=== PATIENT | male | born 1965 | race Caucasian/White ===

== ENCOUNTER 2023-12-28 09:40 | Outpatient (REF) | payer OTHER, SELFPAY ==
--- NOTE | ~2023-12-28 | US_ITS ---
EXAMINATION: US ABDOMEN LIMITED CLINICAL INFORMATION: Ventral hernia. COMPARISON: None available. TECHNIQUE: Real-time imaging of the epigastric midline lung and left upper quadrant lump. FINDINGS: No evidence of hernia. US/US abdomen limited IMPRESSION: No evidence of hernia.
[2023-12-28 10:06] LABS: MANUAL DIFF FLAG NO
[2023-12-28 10:27] LABS: Basophils Percent Auto 0.6 % (0-2); Eosinophils Percent Auto 0.6 % (0-4); Hematocrit 47.7 % (42.0-52.0); Hemoglobin 16.6 g/dl (14.0-18.0); Imm Gran Abs Auto 0.02 X10*3/uL (0.00-0.03); Imm Gran Pct Auto 0.4 % (0.0-0.4); Lymphocytes Absolute Auto 1.5 X10*3/uL (1.2-4.9); Lymphocytes Percent Auto 32.2 % (20-40); Mean Corpuscular HGB Conc 34.8 g/dl (31.0-36.0); Mean Corpuscular Hemoglobin 30.5 pg (27.0-33.0); Mean Corpuscular Volume 87.5 fL (80.0-98.0); Mean Platelet Volume 8.7 fL (9.4-12.4); Monocytes Absolute Auto 0.4 X10*3/uL (0.1-1.2); Monocytes Percent Auto 8.2 % (2-11); Neutrophils Absolute Auto 2.8 x10*3/uL (2.0-8.3); Platelet Count 268 X10*3/uL (160-400); Red Blood Count 5.45 X10*6/uL (4.60-5.80); Red Cell Distribution Width 12.7 % (11.0-16.0); White Blood Count 4.8 X10*3/uL (4.8-10.8)
[2023-12-28 10:35] LABS: Estimated Average Glucose 108 mg/dL; Hemoglobin A1C 150.5946 umol/L; Hemoglobin A1c % 5.4 % (<6.0)
[2023-12-28 11:14] LABS: Alanine Aminotransferase 26 U/L (0-40); Albumin Level 4.6 g/dL (3.5-5.0); Alkaline Phosphatase 64 U/L (39-117); Anion Gap 16 (12-20); Aspartate Amino Transferase 21 U/L (5-37); Bilirubin Total 0.9 mg/dL (0.0-1.0); Blood Urea Nitrogen 22 mg/dL (9-16); Calcium 9.9 mg/dL (8.4-10.2); Carbon Dioxide 26 mmol/L (22-29); Chloride 101 mmol/L (96-108); Cholesterol 238 mg/dL (<200); Estimated Glomerular Filt Rate > 60; Glucose Random 105 mg/dL (60-115); HDL Cholesterol 51 mg/dL (>40); LDL Cholesterol Calculated 155 mg/dL (<100); Potassium 4.5 mmol/L (3.3-5.1); Prostate Specific Antigen 0.38 ng/mL (<0.05-4.0); Sodium 138 mmol/L (135-145); Total Protein 8.2 g/dL (6.5-8.0); Triglycerides 161 mg/dL (<150)
[2023-12-29 11:22] LABS: DHEA Sulfate 184 mcg/dL (32-279); Follicle Stimulating Hormone 3.9 mIU/mL (1.4-12.8); Lutenizing Hormone 1.4 mIU/mL (1.5-9.3)
[2024-01-03 12:28] LABS: Testosterone, Total 263 ng/dL (250-1100)
[2024-01-04 03:03] LABS: Estradiol Ultra Sensitive 17 pg/mL (< OR = 29)
== END 2023-12-28 09:41 | disposition home or self-care (01) ==
LOC: HO.XRAY 09:40
PROVIDERS: Visit Provider Nurse Practitioner Adult Health
DX: K43.9 Ventral hernia without obstruction or gangrene (principal); Z12.5 Encounter for screening for malignant neoplasm of prostate
CPT/HCPCS: 36415; 76705; 80053; 80061; 82627; 82670; 83001; 83002; 83036; 84153; 84403; 84443; 85025

== ENCOUNTER 2024-07-12 08:59 | Outpatient (AMB) | payer OTHER, SELFPAY ==
--- NOTE | 2024-07-12 09:03 | MHC.OFFVIS ---
Vital Signs 07/12/24 09:04 Height 5 ft 2 in Weight 154 lb 5.177 oz BMI 28.2 BP 140/74 H Blood Pressure Location Lt brachial Position Sitting Pulse 86 Intake Visit Reasons: Chronic IBS Intake Note: Vinny presents in the office as a new patient for Chronic IBS. CC: He states that he has LLQ pains and he states that he is questioning an Ulcer. Occasional irregular bowel movements. 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 Reports has had intermittent vague pain x years but for the past 3 weeks pain character and location has shifted. Feels more of a gnawing pin point pain now which gets worse with eating. Sometimes also exacerbated by doing weights bolivar on lat pull downs. Occurs daily. Not assoc with nausea vomiting or change in stool. No unintentional weight loss. Has been taking omeprazole 40 mg x 2 months and more recently Rxed dicyclomine 10 QID but has not started yet. Recent endoscopy: 2021 (Dr Jason) Esophagitis. Gastritis (no HP). Normal duo bx. Sigmoid polyp: hyperplastic. Pt also recently injured his R leg. Advised against use of NSAIDs. [facility] Surgical History (Updated 07/12/24 @ 09:17 by DALLIN Corrales) Hx of colonoscopy History of esophagogastroduodenoscopy (EGD) Review of Systems Const All systems reviewed & are unremarkable except as noted in HPI and below Physical Exam Vital Signs: Last Vital Signs Pulse 86 07/12/24 09:04 BP 140/74 H 07/12/24 09:04 BMI result Body Mass Index 28.2 No apparent distress Nonicteric Abdomen soft, nondistended Alert and oriented x3, R knee in a compression wrap and requiring crutches to help walk Assessment & Plan Assessment & Plan (1) LUQ abdominal pain: Code(s): R10.12 - Left upper quadrant pain Category: Medical (2) History of esophagitis: Code(s): Z87.19 - Personal history of other diseases of the digestive system Category: Medical (3) History of gastritis: Code(s): Z87.19 - Personal history of other diseases of the digestive system Category: Medical Plan Ddx includes PUD, gastritis, pancreatitis, celiac, MSK injury. Plan: - Labs as below - Cont omeprazole 40 once daily in AM - Start sucralfate 10ml up to QID - to be taken 30 mins before meals - EGD to be booked - Avoid NSAIDS, smoking, etOH Follow up after EGD Orders: Orders Immunoglobulin A Today R10.12 - Left upper quadrant pain Transglutaminase IgA Today R10.12 - Left upper quadrant pain Complete Blood Count no Diff Today R10.12 - Left upper quadrant pain Comprehensive Met. Panel Today R10.12 - Left upper quadrant pain Lipase Today R10.12 - Left upper quadrant pain TSH reflex Free T4 Today R10.12 - Left upper quadrant pain Medications: New sucralfate 10 mL PO QIDACHS 14 days 560 mL 1RF Coding Level of Care Code New Pt Level 4 (11985) Diagnoses LUQ abdominal pain R10.12 History of esophagitis Z87.19 History of gastritis Z87.19
[2024-07-12 09:04] VITALS: BP 140/74; PULSE 86; BMI 28.2
== END 2024-07-12 10:01 | disposition home or self-care (01) ==
PROVIDERS: PCP Nurse Practitioner Family; Visit Provider Internal Medicine
DX: R10.12 Left upper quadrant pain (principal); Z87.19 Personal history of other diseases of the digestive system
CPT/HCPCS: 99204

== ENCOUNTER 2024-07-12 08:59 | Outpatient (REF) | payer OTHER, SELFPAY | END 2024-07-12 09:00 | disposition home or self-care (01) | LOC: HO.LAB 08:59 | PROVIDERS: PCP Nurse Practitioner Family; Visit Provider Internal Medicine | DX: Z13.89 Encounter for screening for other disorder (principal) ==

== ENCOUNTER 2024-07-12 10:20 | Outpatient (REF) | payer OTHER, SELFPAY ==
[2024-07-12 11:18] LABS: Hematocrit 54.4 % (42.0-52.0); Hemoglobin 19.2 g/dl (14.0-18.0); Mean Corpuscular HGB Conc 35.3 g/dl (31.0-36.0); Mean Corpuscular Hemoglobin 30.7 pg (27.0-33.0); Mean Platelet Volume 9.1 fL (9.4-12.4); Platelet Count 305 X10*3/uL (160-400); Red Blood Count 6.25 X10*6/uL (4.60-5.80); Red Cell Distribution Width 12.6 % (11.0-16.0); White Blood Count 8.4 X10*3/uL (4.8-10.8)
[2024-07-12 12:00] LABS: Alanine Aminotransferase 32 U/L (0-40); Albumin Level 4.4 g/dL (3.5-5.0); Alkaline Phosphatase 67 U/L (39-117); Anion Gap 10 (12-20); Aspartate Amino Transferase 29 U/L (5-37); Blood Urea Nitrogen 17 mg/dL (9-16); Calcium 9.2 mg/dL (8.4-10.2); Carbon Dioxide 27 mmol/L (22-29); Chloride 103 mmol/L (96-108); Estimated Glomerular Filt Rate > 60; Glucose Random 95 mg/dL (60-115); Lipase 43 U/L (8-78); Potassium 4.2 mmol/L (3.3-5.1); Sodium 136 mmol/L (135-145); Total Protein 7.9 g/dL (6.5-8.0)
[2024-07-12 12:19] LABS: TSH reflex Free T4 0.53 uIU/mL (0.32-4.0)
[2024-07-13 23:39] LABS: Immunoglobulin A 380 mg/dL (47-310)
[2024-07-14 17:18] LABS: Transglutaminase IgA <1.0 U/mL
[2024-07-19 15:16] LABS: H Pylori Breath Test Negative (Negative)
== END 2024-07-12 10:21 | disposition home or self-care (01) ==
LOC: HO.LAB 10:20
PROVIDERS: PCP Nurse Practitioner Family; Visit Provider Internal Medicine
DX: R10.12 Left upper quadrant pain (principal); Z87.19 Personal history of other diseases of the digestive system
CPT/HCPCS: 36415; 80053; 82784; 83013; 83690; 84443; 85027; 86364

== ENCOUNTER 2024-08-01 07:38 | Outpatient (AMB) | payer OTHER, SELFPAY ==
[2024-08-01 07:56] VITALS: BMI 28.2
--- NOTE | 2024-08-01 07:56 | A.OFFVIS_ITS ---
Vital Signs 08/01/24 07:56 Height 5 ft 2 in Weight 154 lb 5 oz BMI 28.2 Intake Visit Reasons: Right knee pain and instability Intake Note: Vinny is a 58 year old male who presents with complaints of progressively worsening right knee pain and giving way. The patient states that he injured his right knee several months ago when he twisted his knee while running on a [employer] He had acute onset of pain along the anterior aspect of his knee. The patient states that initially he was not able to weight bear on his right leg. He has been using crutches because of his pain. He states that his right knee gives out when he is not using the crutches. He has tried Tylenol and anti- inflammatory medicines which gave him minimal relief. He has failed the last 6 weeks of conservative treatment which has included topical creams, physical therapy exercises, crutches, Tylenol and anti-inflammatory medicines. He denies any knee pain or instability prior to this injury. Allergies No Known Allergies Allergy (Verified 08/01/24 08:00) Medication List - Last Reconciled 08/01/24 by Tomas Ribeiro MD lisinopril 20 mg PO DAILY omeprazole 40 mg PO DAILY sucralfate 10 mL PO QIDACHS 14 days [facility] Surgical History (Updated 07/12/24 @ 09:17 by DALLIN Corrales) Hx of colonoscopy History of esophagogastroduodenoscopy (EGD) Physical Exam Vital Signs: BMI result Body Mass Index 28.2 Const Other: Well-nourished well-developed very friendly male awake alert and oriented x3 in no acute distress Extrem Other: Bilateral lower extremity examination shows good capillary refill, no skin lesions noted, normal sensation light touch Right knee examination shows a mild effusion, minimal crepitus with range of motion, tenderness along his medial joint line, positive Russell's test, p ositive Estefanía test Results Reviewed Results Reviewed: Standing full weight-bearing x-rays of the patient's right knee show minimal diffuse joint space narrowing, no acute bony abnormalities Assessment & Plan Assessment & Plan (1) 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 Cardenas presents with progressively worsening right knee pain and mechanical symptoms most likely due to an anterior cruciate ligament tear as well as possible tearing of his medial meniscus. Thus, I will send the patient for an MRI of his right knee for further evaluation. I will see him back once the MRI is completed to discuss the findings and treatment options. Feel free to call me at any time should questions regarding his orthopedic management arise. Thank you very much for asking me to see this very friendly gentleman. I spent 22 minutes in reviewing the patient's records and imaging studies, seeing the patient and documenting in the medical record. 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
== END 2024-08-01 08:22 | disposition home or self-care (01) ==
PROVIDERS: PCP Nurse Practitioner Family; Visit Provider Orthopaedic Surgery
DX: M23.8X1 Other internal derangements of right knee (principal)
CPT/HCPCS: 99203

== ENCOUNTER 2024-08-01 14:51 | Outpatient (REF) | payer OTHER, SELFPAY ==
--- NOTE | ~2024-08-01 | XR_ITS ---
EXAMINATION: XR KNEE RIGHT CLINICAL INFORMATION: Pain in right knee M25.561. COMPARISON: None available TECHNIQUE: 3 views of the right knee. FINDINGS: No fracture or joint effusion. Alignment is anatomic. Joint spaces are maintained. No abnormal soft tissue calcification. XR/XR knee RT 3V IMPRESSION: Normal right knee. Electronically signed by: Jacob Kendall MD 09/07/2024 02:55 PM [facility] [place]
== END 2024-08-01 14:52 | disposition home or self-care (01) ==
LOC: HO.HOSX 14:51
PROVIDERS: Visit Provider Orthopaedic Surgery
DX: M23.8X1 Other internal derangements of right knee (principal)
CPT/HCPCS: 73562

== ENCOUNTER 2024-08-04 11:50 | Day surgery (SDC) | payer OTHER, SELFPAY ==
[2024-08-04 12:04] VITALS: BMI 27.1
[2024-08-04 12:16] VITALS: BP 157/78; PULSE 93; RESP 15; TEMP 37; O2SAT 96
[2024-08-04] MEDS: Lactated Ringers 1,000 ML 50 ML IVCONT (12:27)
--- NOTE | 2024-08-04 13:00 | MHC.SHP ---
Pre-Procedural Eval Section A - 24 Hr Update-Section A only Date of Service: 08/04/24 The patient is an INPATIENT: No Changes since office visit: Yes Patient answered all questions; No Cold of Flu in the past 2 weeks, No New Medical Problems and No Changes in Medication The patient has been examined within 24 hours of the surgical procedure. The History & Physical has been completed within 30 days and I have reviewed it.: Yes Section B - Complete if H&P > 30 days Chief Complaint: Left upper quadrant pain,hx of disease digestive Allergies: Allergies Allergy/AdvReac Type Severity Reaction Status Date / Time No Known Allergies Allergy Verified 08/04/24 12:04 Plan Diagnosis/Plan: Unchanged I have reviewed the history and physical and performed a pertinent physical examination on my patient. No changes have occurred unless specified. Time Spent With Patient Time: Total time managing care of this patient today ____ minutes.
--- NOTE | 2024-08-04 13:41 | HO.ANESPROP2 ---
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 Hct will be checked after off TRT before further w/u History of gastritis (Acute) History of esophagitis (Acute) LUQ abdominal pain (Acute) On TRT Past Medical History Medical History Hx of right bundle branch block Borderline high cholesterol HTN (hypertension) Family History Family history of problems with anesthesia: No Surgical History Surgical History Hx of cerebral aneurysm repair Hx of colonoscopy History of esophagogastroduodenoscopy (EGD) History of Problems with Anesthesia: No Social History Social History Patient Tobacco Use Status: Former Tobacco user Use of substances other than those prescribed or required for medical reasons: No Are you DNR?: No Advance Directives: No Advance Directives Information Provided: Yes Recently lost weight without trying: No Meds Allergies Allergy/AdvReac Type Severity Reaction Status Date / Time No Known Allergies Allergy Verified 08/04/24 12:04 Active Medications: Current Medications Lactated Ringer's (Lr) 1,000 mls @ 50 mls/hr IVCONT .Q20H ALONZO Last Admin: 08/04/24 12:27 Dose: 50 mls/hr Home Medications ?Medication ?Instructions ?Recorded ?Confirmed ?Last Taken ?Type lisinopril 20 mg tablet 20 mg PO DAILY 07/12/24 08/04/24 Unknown History omeprazole 40 mg capsule,delayed 40 mg PO DAILY 07/12/24 08/04/24 Unknown History release Exam Height,Weight and Vital Signs: Height 5 ft 2 in Weight 67.132 kg Last Vital Signs Temp 98.6 F 08/04/24 12:16 Pulse 93 08/04/24 12:16 Resp 15 08/04/24 12:16 BP 157/78 H 08/04/24 12:16 Pulse Ox 96 12/13/24 12:16 O2 Del Method Room Air 12/13/24 12:16 Airway Mallampati Class: III TM Dist: >3cm Neck ROM: Full Loose/Missing/Broken Teeth: Yes (Missing molars. Permanent bridge bottom. Denies broken or loose teeth) Heart: RRR Lungs: CTAB Assessment and Plan Assessment Anesthesia Assessment: Anesthesia Plan Discussed and Chart Reviewed Final Anesthetic Review Family History of Problems with Anesthesia: No History of Problems with Anesthesia: No NPO: Yes ASA Class: II Final Preanesthetic Review: No Changes in Pt Med Stat, Meds/Allgs Chart Reviewed, Consent Obtained/Reviewed and Anes Risks/Benef Reviewed Patient Risk: Intermediate Procedure Risk: Low Assessment/Block/Sedation in SS: Assess/Block/Sedation-SS Anesthetic Plan Anesthetic Plan: TIVA Disposition: Standard PACU
[2024-08-04 14:16] VITALS: BP 116/79; PULSE 94; RESP 16; TEMP 36.8; O2SAT 96
--- NOTE | 2024-08-04 14:17 | P.OP_ITS ---
Operative Note Operative Note Date of Service: 08/04/24 Narrative: FLEXIBLE TRANSORAL UPPER GASTROINTESTINAL ENDOSCOPY WITH BIOPSIES Pre-op diagnosis: Upper abdominal pain, Post-op diagnosis: GERD, hiatal hernia, Gastritis, Specimens and Sources: : A: SMALL BOWEL BX R/O CELIAC ?B: ANTRUM BX R/O H PYLORI ?C: GASTRIC BODY BX ?D: GE JUNCTION BX R/O BARRETTS Endoscopist:? Rodrigo Woodruff MD Anesthesia:?[facility] [place] UPPER ENDOSCOPY Consent: Indications for the procedure and potential complications of bleeding, perforation, reaction to medications and missed diagnosis were discussed with the patient and informed consent was obtained. Instrument: Olympus GIF H 190 mid size upper endoscope Monitoring: Vital signs and clinical assessment, continuous EKG monitoring, Pulse oximetry, Carbon Dioxide monitoring and blood pressure monitoring were done throughout the procedure. Procedure: The patient was placed in the left lateral decubitis position and pre-procedure medications were administered and a bite block was placed. The endoscope was inserted into the mouth and advanced under direct vision to the third part of duodenum. A careful inspection was made as the upper endoscope was withdrawn including a retroflexed examination of the proximal stomach; Findings and interventions are described below. Findings: Larynx: Normal Esophagus: GE junction at 38 cms, small hiatal hernia 38 to 40 cms. ! cms tongue of suspected Rodriguez's - biopsied Stomach: 2 cms focal area of nodular appearing mucosa in the gastric body along the lesser curve at 45 cms - biopsied. Scattered chronic appearing erosions in the pre-pyloric area in the antrum - biopsies were obtained. Grade 2 flap valve on retroflexed examination of the cardia. Duodenum: Normal bulb and descending duodenum. Biopsies were obtained from 3rd part of the duodenum to check for celiac sprue Intervention: Biopsies as noted above Impression and Post Procedure Diagnosis: Endoscopy Findings: ESOPHAGUS: small hiatal hernia 38 to 40 cms. ! cms tongue of suspected Rodriguez's - biopsied STOMACH: 2 cms focal area of nodular appearing mucosa in the gastric body along the lesser curve at 45 cms - biopsied. Scattered chronic appearing erosions in the pre-pyloric area in the antrum - biopsies were obtained. DUODENUM: Normal - biopsied to check for celiac sprue Plan: Pt to schedule a FU appointment on Dr Rodriguez Above findings were reviewed with the patient and relevant handouts were given and the discharge area.
[2024-08-04 14:31] VITALS: BP 104/80; PULSE 86; RESP 16; TEMP 36.8; O2SAT 98
== END 2024-08-04 14:38 | disposition home or self-care (01) ==
PROVIDERS: PCP Nurse Practitioner Family; Visit Provider Internal Medicine Gastroenterology
PROC: 0DJ08ZZ Inspection of Upper Intestinal Tract, Via Natural or Artificial Opening Endoscopic (ICD-10-PCS; CPT 43235; principal; 2024-08-04 13:30)
DX: R10.12 Left upper quadrant pain (principal); Z87.19 Personal history of other diseases of the digestive system; K21.9 Gastro-esophageal reflux disease without esophagitis; K29.50 Unspecified chronic gastritis without bleeding; K44.9 Diaphragmatic hernia without obstruction or gangrene; K58.9 Irritable bowel syndrome, unspecified; I10 Essential (primary) hypertension; Z79.899 Other long term (current) drug therapy; Z87.891 Personal history of nicotine dependence
CPT/HCPCS: 43239; 88305; 88342; J2003; J2704

== ENCOUNTER → 2024-08-04 11:50 | Outpatient (BNV) | payer OTHER, SELFPAY | PROVIDERS: PCP Nurse Practitioner Family; Visit Provider Internal Medicine Gastroenterology | DX: K21.9 Gastro-esophageal reflux disease without esophagitis (principal); K29.70 Gastritis, unspecified, without bleeding | CPT/HCPCS: 43239 ==

== ENCOUNTER 2024-08-17 12:07 | Outpatient (REF) | payer OTHER, SELFPAY ==
--- NOTE | ~2024-08-17 | CT_ITS ---
EXAMINATION: CT ABDOMEN AND PELVIS WITH CONTRAST CLINICAL INFORMATION: Left upper quadrant pain. COMPARISON: Abdominal ultrasound dated 12/28/2023. TECHNIQUE: Multidetector volumetric images were obtained from the superior aspect of the liver through the pubic symphysis following administration 85 mL of Omnipaque 350 intravenous contrast. Sagittal and coronal reformatted images were obtained on the technologist's workstation. Oral contrast: Yes This CT examination was performed using dose optimization techniques as appropriate, variously including the following: *Automated exposure control *Adjustment of mA and/or kV according to patient size (this includes techniques or standardized protocols for targeted exams where dose is matched to indication/reason for exam; i.e. extremities or head) *Use of iterative reconstruction technique DLP: 284 mGy-cm FINDINGS: LUNG BASES: The visualized lung bases are unremarkable. LIVER, GALLBLADDER, AND BILIARY TREE: The liver is normal in size, shape, and attenuation. Within the central aspect of the right hepatic lobe there is a slightly heterogeneous hypoenhancing lesion measuring 2.8 x 2.0 x 2.9 cm (AP x ML x CC). This is adjacent to the central vessels without significant postcontrast enhancement. Findings are nonspecific and could represent a complex cyst or hemangioma. A more aggressive lesion or a biliary ductal lesion could be considered in the appropriate clinical setting. Hepatic MRI is recommended to help further evaluate. No additional parenchymal lesion. No intrahepatic biliary ductal dilatation. The gallbladder is unremarkable with no evidence of radiopaque gallstones, gallbladder wall thickening, or obvious pericholecystic inflammatory changes. PANCREAS: Unremarkable. SPLEEN: Unremarkable. ADRENAL GLANDS: Unremarkable. KIDNEYS AND URETERS: The kidneys are normal in size, shape, and attenuation. No hydronephrosis, hydroureter, or calculi seen. No perinephric stranding. BLADDER: Unremarkable. GASTROINTESTINAL TRACT: Oral contrast reaches the distal colon. Mild stool burden. No small or large bowel obstruction. No bowel wall thickening or inflammatory change. Unremarkable appendix. PERITONEAL CAVITY: No intra-abdominal free air or free fluid. ABDOMINAL WALL: No significant hernia is appreciated. LYMPH NODES: No lymphadenopathy. VASCULAR: Unremarkable. PELVIC VISCERA: Prostate calcifications. OSSEOUS STRUCTURES: Unremarkable. CT/CT abdomen pelvis w IV con IMPRESSION: 1. Within the central aspect of the right hepatic lobe there is a slightly heterogeneous hypoenhancing lesion measuring up to 2.9 cm. Findings are nonspecific and could represent a complex cyst or hemangioma. A more aggressive lesion or a biliary ductal lesion could be considered in the appropriate clinical setting. Hepatic MRI is recommended to help further evaluate. No additional hepatic parenchymal lesion or biliary ductal dilatation. 2. Mild stool burden. No small or large bowel obstruction. No bowel wall thickening or inflammatory change. Unremarkable appendix. 3. No intra-abdominal lymphadenopathy or ascites. Fleischner guidelines were followed. Electronically signed by: Merrill Patricio MD 08/18/2024 09:18 AM [facility]
[2024-08-17] MEDS: Barium Sulfate Oral (Berry) 450 ML ORAL.SUSP 900 ML PO (14:27)
[2024-08-17] MEDS: iohexoL 350 MG/ML 100 ML INFUS..BTL IV (14:27)
[2024-08-18 07:26] LABS: Creatinine POC 0.9 mg/dL (0.5-1.4); GFR POC > 60
== END 2024-08-17 12:08 | disposition home or self-care (01) ==
LOC: HO.CT 12:07
PROVIDERS: PCP Nurse Practitioner Family; Visit Provider Internal Medicine Gastroenterology
DX: R10.12 Left upper quadrant pain (principal)
CPT/HCPCS: 74177; 82565; Q9967

== ENCOUNTER → 2024-08-19 19:26 | Outpatient (BNV) | payer OTHER, SELFPAY | PROVIDERS: PCP Nurse Practitioner Family; Visit Provider Radiology Diagnostic Radiology | DX: S83.241A Other tear of medial meniscus, current injury, right knee, initial encounter (principal); M71.21 Synovial cyst of popliteal space [Baker], right knee | CPT/HCPCS: 73721 ==

== ENCOUNTER 2024-08-19 19:27 | Outpatient (REF) | payer OTHER, SELFPAY | END 2024-08-19 19:28 | disposition home or self-care (01) | LOC: HO.MRI 19:27 | PROVIDERS: PCP Nurse Practitioner Family; Visit Provider Orthopaedic Surgery | DX: M23.8X1 Other internal derangements of right knee (principal) | CPT/HCPCS: 73721 ==

== ENCOUNTER 2024-09-16 12:40 | Outpatient (REF) | payer OTHER, SELFPAY ==
--- NOTE | ~2024-09-16 | MR_ITS ---
EXAMINATION: MRI Abdomen without and with contrast HISTORY: R16.0 - Hepatomegaly, not elsewhere classified COMPARISON: Correlation is made with a CT of the abdomen with contrast dated 08/17/2024. TECHNIQUE: Axial in and out of phase T1-weighted gradient echo, axial diffusion weighted, and axial and coronal haste T2 with fat saturation images were obtained through the abdomen. 3D MRCP Reconstructed images and thick slab imaging of the biliary tree were obtained. Subsequently, fat suppressed axial and coronal T1-weighted images were obtained after the intravenous administration of 7 mL Gadavist. FINDINGS: The liver is normal in size. There is no significant signal loss within the liver on opposed phase images to suggest steatosis. There is a 2.0 cm lobulated T2 hyperintense lesion in segment VIII. This demonstrates peripheral nodular enhancement with fill-in over time, compatible with a hemangioma. No additional liver lesion is identified. There is no intra or extrahepatic biliary ductal dilatation. The hepatic and portal veins are patent. The gallbladder, spleen, pancreas, adrenals, and kidneys are unremarkable. No retroperitoneal lymphadenopathy or ascites is identified in the upper abdomen. The visualized bones demonstrate normal marrow signal intensity. 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 Electronically signed by: Wan Strong MD 09/18/2024 07:46 AM [facility] [place]
[2024-09-16] MEDS: gadobutroL 7.5 ML VIAL IVPUSH (13:40)
== END 2024-09-16 12:41 | disposition home or self-care (01) ==
LOC: HO.MRI 12:40
PROVIDERS: PCP Nurse Practitioner Family; Visit Provider Internal Medicine
DX: R16.0 Hepatomegaly, not elsewhere classified (principal)
CPT/HCPCS: 74183; A9585

== ENCOUNTER → 2024-09-16 12:52 | Outpatient (BNV) | payer OTHER, SELFPAY | PROVIDERS: PCP Nurse Practitioner Family; Visit Provider Radiology Diagnostic Radiology | DX: R16.0 Hepatomegaly, not elsewhere classified (principal) | CPT/HCPCS: 74183 ==

== ENCOUNTER 2025-04-13 11:10 | Outpatient (AMB) | payer OTHER, SELFPAY ==
--- OUTSIDE RECORDS SUMMARY | 2025-04-13 11:16 | XMS_ITS | Clinical Summary ---
Author Organization [facility] Address [address] [place] [id number] Care Team Providers Care Associate Field Service Engineer Name Role Phone Fernie Maria MD Primary Care Provider [phone] Allergies Active Allergy Reactions Criticality Noted Date Comments Citalopram Other (See Comments) 04/09/2011 Medications lisinopril (ZESTRIL) 10 MG tablet TAKE 1 TABLET DAILY DIRECTED. 1 Active multivitamin with 18 mg iron per tablet TAKE 1 TABLET DAILY. 1 Active fish oil-omega-3 fatty acids 300-1,000 mg capsule TAKE 1 CAPSULE DAILY. 1 Active garlic 1,000 mg cap Take once daily 1 Active VIBRAMYCIN 100 mg capsule TAKE 1 CAPSULE DAILY UNTIL FINISHED. 3 Active Text: Tetracycline HCl CAPS 1 Active Text: Clindamycin HCl CAPS 2 Active Active Problems Problem Noted Date Diagnosed Date Nonruptured cerebral aneurysm 04/25/2014 Overview (10/22/2014): Cerebral Artery Aneurysm Headache 05/23/2012 Overview (10/22/2014): Headache Abnormal brain scan 05/23/2012 Overview (10/22/2014): Abnormal Brain Scan Anxiety 11/11/2010 Overview (10/22/2014): Anxiety Text: Transient Ischemic Att ack Of The Left Middle Cerebral Artery 07/09/2010 Overview (11/17/2014): Text: Transient Ischemic Attack Of The Left Middle Cerebral Artery Social History Tobacco Use Types Packs/Day Years Used Date Smoking Tobacco: Never Assessed Sex and Gender Information Value Date Recorded Sex Assigned at Not on file Legal Sex Male 6:50 PM EST Gender Identity Not on file Sexual Orientation Not on file Last Filed Vital Signs Vital Sign Reading Time Taken Comments Blood Pressure 129/81 05/03/2013 1:16 PM EDT Pulse 78 05/03/2013 1:16 PM EDT Temperature 36.6 C (97.8 F) 04/09/2011 12:35 PM EDT Respiratory Rate 14 05/23/2012 11:26 AM EDT Oxygen Saturation 97% 04/09/2011 12:35 PM EDT Inhaled Oxygen Concentration - - Weight 68 kg (150 lb) 05/27/2016 8:54 AM EDT Height 157.5 cm (5' 2 ) 05/03/2013 1:16 PM EDT Body Mass Index 27.44 05/03/2013 1:16 PM EDT Plan of Treatment Not on file Insurance Care Teams Associate Field Service Engineer Relationship Specialty Start Date End Date Fernie Maria MD PCP - General 05/27/16
--- OUTSIDE RECORDS SUMMARY | 2025-04-13 11:16 | XMS_ITS | Clinical Summary ---
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 Not on may e 11/23/2024 Are you concerned about learning? Not on file 11/23/2024 No 11/23/2024 No 11/23/2024 Digital Access Answer Date Recorded No 11/23/2024 No 11/23/2024 Reliable internet access at home? Not on file 11/23/2024 Device with a working camera? Not on file Sex and Gender Information Value Date Recorded Sex Assigned at Not on file Legal Sex Male 7:05 PM EDT Gender Identity Not on file Sexual Orientation Not on file Plan of Treatment Not on file Medical Devices Not on file Insurance [employer] Additional Source Comments The information contained in this document represents components of the legal health record. It is not the complete legal health record.[facility]
--- NOTE | 2025-04-13 11:32 | MHC.OFFVIS ---
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 He is a patient of Dr. Betancourt. He is seen for the following urologic conditions - male hypogonadism Had been cyst at a testosterone Clinic Diagnosed with borderline testosterone Placed on injectable T Recent lab work shows elevated T, elevated estradiol Has symptoms consistent with shunting Will restart dosing at 0.15 2 times per week Try HCT restart Prescriptions provide 4 month follow-up PFSH Medical History Hx of right bundle branch block Borderline high cholesterol HTN (hypertension) Surgical History Hx of cerebral aneurysm repair Hx of colonoscopy History of esophagogastroduodenoscopy (EGD) Social History Patient Tobacco Use Status: Former Tobacco user Review of Systems Const Denies chills and Denies fever(s) Card Reports no additional complaints and Denies syncope Resp Denies cough GI Denies abdominal pain and Denies heartburn Reports as per HPI and Denies change in libido Neuro Denies syncope Psych Denies change in libido Endo Denies change in libido Physical Exam Const General: cooperative, healthy appearing, comfortable and no acute distress Orientation/consciousness: patient oriented x3 HEENT Face and sinus: Yes normal facial exam Mouth: moist mucous membranes Neck Neck: Yes normal visual inspection, Yes full ROM and Yes trachea midline Chest Chest palpation & inspection: normal inspection of the chest Resp Effort & Inspection: normal respiratory effort, able to speak in complete sentences and no respiratory distress GI Inspection: Yes normal to inspection Back/Spine/Pelvis Cervical Spine: normal cervical lordosis Thoracic/Lumbar Spine: thoracic and lumbar spine normal to inspection Skin General skin exam: no rashes or lesions noted Neuro General: patient oriented x3, gait normal, tone normal and moves all extremities Extrem General: Yes normal to inspection and Yes capillary refill normal Results AMB Urinalysis, Automated UA Leukoctes 0 Ewa/uL Last Edit by RAJIV Alston on 04/13/25 11:48 UA Nitrite Negative Last Edit by Dariana Hazel [facility] on 04/13/25 11:48 UA Urobilinogen 0.2 mg/dL [facility] 04/13/25 11:48 UA Protein 0 mg/dL Last Edit by Dariana Hazel [facility] on 04/13/25 11:48 UA pH 7.0 Last Edit by Dariana Hazel [facility] on 04/13/25 11:48 UA Blood 0 Justin/uL Last Edit by Dariana Hazel [facility] on 04/13/25 11:48 UA Specific Shelby 1.005 Last Edit by Dariana Hazel [facility] on 04/13/25 11:48 UA Ketone Negative Last Edit by Dariana Hazel [facility] on 04/13/25 11:48 UA Bilirubin 0 mg/dL Last Edit by Dariana Hazel [facility] on 04/13/25 11:48 UA Glucose 0 mg/dL Last Edit by Dariana Hazel [facility] on 04/13/25 11:48 Results Reviewed Results Reviewed: Laboratory Last Values Urine pH (Auto) 7.0 04/13/25 11:48 Specific Shelby (Auto) 1.005 04/13/25 11:48 Urine Protein (Auto) 0 mg/dL 04/13/25 11:48 Glucose (UA)(Auto) 0 mg/dL 04/13/25 11:48 Urine Ketones (Auto) Negative 04/13/25 11:48 Urine Blood (Auto) 0 Justin/uL 04/13/25 11:48 Urine Nitrite (Auto) Negative 04/13/25 11:48 Urine Bilirubin (Auto) 0 mg/dL 04/13/25 11:48 Urine Urobilinogen (Auto) 0.2 mg/dL 04/13/25 11:48 Leukocyte Esterase (Auto) 0 Ewa/uL 04/13/25 11:48 Assessment & Plan Assessment & Plan (1) Hypogonadism in male: Code(s): E29.1 - Testicular hypofunction Category: Medical Plan Four month follow-up lab work Orders: Orders Testosterone, Total 4 Months E29.1 - Testicular hypofunction Follicle Stimulating Hormone 4 Months E29.1 - Testicular hypofunction AMB Urinalysis Automated Today Z13.9 - Encounter for screening, unspecified Lutenizing Hormone 4 Months E29.1 - Testicular hypofunction Estrad Free (Tot Ultra + Free) 4 Months E29.1 - Testicular hypofunction Hematocrit 4 Months E29.1 - Testicular hypofunction Medications: New testosterone cypionate (Depo-Testosterone) Reusable vial 35 mg (0.175 mL) subcut .2xweek 2 mL 2RF 4 weeks E29.1 - Testicular hypofunction [enclomiphene 6.25 mg] Take 25mg daily for 1 month, then 12.5mg daily for 1 month, then 6.25mg daily for 1 month Patient Cell Number - [phone] 1 tab PO DAILY 30 days 30 tabs 0RF E29.1 - Testicular hypofunction [enclomiphene 12.5 mg] Take 25mg daily for 1 month, then 12.5mg daily for 1 month, then 6.25mg daily for 1 month Patient Cell Number - [phone] 1 tab PO DAILY 30 days 30 tabs 0RF E29.1 - Testicular hypofunction [enclomiphene] Take 25mg daily for 1 month, then 12.5mg daily for 1 month, then 6.25mg daily for 1 month Patient Cell Number - [phone] 1 tab PO DAILY 30 tabs 0RF 30 days E29.1 - Testicular hypofunction Patient Instructions: This note is constructed using voice recognition software. While every effort has been made to ensure accuracy trailer park manager errors may have been included. Imaging studies, laboratory and physical exam results were discussed and reviewed in detail. No major barriers to patient understanding were identified. An opportunity to ask questions regarding the treatment plan was provided. All questions were answered. The patient expressed understanding and agreement with the above treatment plan. The patient is aware they should contact our office by phone for worsening of their current condition or the appearance of new urologic symptoms. Compliance is encouraged with any medications and followup testing that is ordered. It is a privilege to participate in the urologic care of your patient. If you have any questions or concerns regarding treatment for the above conditions, or other urologic issues, please do not hesitate to contact me. The office telephone contact is [phone]. Sincerely, Dr Bari Gonzalez MD, [facility] - Urology Compassionate Specialist Care for the Genitourinary System Coding Level of Care Code New Pt Level 4 (48176) Diagnoses Hypogonadism in male E29.1
== END 2025-04-13 12:25 | disposition home or self-care (01) ==
LOC: HO.HUSH 11:11
PROVIDERS: PCP Nurse Practitioner Family; Visit Provider Urology
DX: Z13.9 Encounter for screening, unspecified (principal); E29.1 Testicular hypofunction
CPT/HCPCS: 99204

== ENCOUNTER → 2025-04-13 11:10 | Outpatient (BNVA) | payer OTHER, SELFPAY | PROVIDERS: PCP Nurse Practitioner Family; Visit Provider Urology | DX: E29.1 Testicular hypofunction (principal) | CPT/HCPCS: 81003 ==